=== PATIENT | female | born 1995 | race Caucasian/White ===

== ENCOUNTER 2017-09-04 19:05 | Inpatient (IN) | payer BC, SELFPAY ==
[2017-09-04 19:26] VITALS: BMI 43.7
[2017-09-04] MEDS: Lactated Ringers 1,000 ML 50 ML IV (20:00)
[2017-09-04] MEDS: 0.9% Normal Saline 100 ML IV.SOLN. INTRA-UTER (20:15)
[2017-09-04 20:19] LABS: Hematocrit 35.1 % (37-47); Hemoglobin 11.9 g/dl (12.0-15.0); Mean Corp Hgb Conc 33.9 g/gl (32-36); Mean Corpuscular Volume 91.4 fL (81-99); Mean Platelet Vol. 10.5 fl (6.2-12.0); Platelet Count 261 K/mm3 (150-450); RBC Distribution Width CV 13.4 % (11.6-14.6); RBC Distribution Width SD 43.9 fl (35.1-43.9); Red Blood Count 3.84 M/mm3 (4.2-5.4); White Blood Count 11.6 K/mm3 (4.4-11.0)
--- NOTE | 2017-09-04 20:30 | PCM.HP.OB ---
History Date of Admission: 09/04/17 Final SHARIF: 09/25/17 Gestational age: 37 Weeks and 0 Days History of this : 22yo @ 37 wks with PRE E. pt reports headache noted only today- otherwise asymptomatic. pt reports no CP, Abdominal pain. pt reports that she has not had any LOF, VB. pt reports good FM. Pt had elevated urine protein level but otherwise normal PRE E labs previously- new labs sent on admission today. pt reports ? H/o HTN but was never truly diagnosed prior to . has been on BABY ASA. Allergies No Known Allergies Allergy (Verified 09/04/17 20:14) Current Medications Acetaminophen (Tylenol) 325 - 650 mg PO Q4H PRN PRN PRN Reason: PAIN OR FEVER >100.4F Al Hydroxide/Mg Hydroxide (Mylanta Ii) 15 - 30 ml PO Q4H PRN PRN PRN Reason: INDIGESTION Citric Acid/Sodium Citrate (Bicitra) 30 ml PO UD PRN Lactated Ringer's () 1,000 mls @ 50 mls/hr IV .Q20H CASANDRA Oxytocin/Sodium Chloride () 30 units in 500 mls @ 1 mls/hr IV .Q500H CASANDRA Nalbuphine HCl (Nubain) 5 - 10 mg IV Q3H PRN PRN PRN Reason: PAIN (4-10/10) Ondansetron HCl (Zofran) 4 mg IV Q8H PRN PRN PRN Reason: NAUSEA Promethazine HCl (Phenergan) 6.25 - 12.5 mg IV Q4H PRN PRN; Protocol PRN Reason: IF NAUSEA PERSISTS Sodium Chloride () 5 - 15 ml IV UD [facility] Smoking Status: Never smoker Alcohol: None Number of Fetus(es): 1 Review of Systems Constitutional: Denies: Anorexia Eyes: Denies: Blurred vision HEENT: Reports: Head Aches - today only Cardiovascular: Denies: Chest Pain Gastrointestinal: Denies: Abdominal Pain Physical Exam General: Alert, Oriented x3 Abdomen: Soft, Non Tender, Gravid Estimated gestational size: Appropriate for gestational size Presentation: Cephalic Cervix Dilation (cm): 0.5 Station: -3 Effacement (%): 60 Assessment/Plan 22yo 2 37 weeks with PRE eclampsia here for IOL 1) admit to L&D 2) monitor FHR/TOCo 3) PRADO AND PIT FOR IOL 4) Epidural if requested for pain 5) GBS negative
[2017-09-04 20:33] LABS: Scan Indicated on CBC? Y/N NO
--- NOTE | 2017-09-04 20:33 | PCM.PN.BLA ---
Progress Note I placed transcervical lake catheter without complication- after placement the catheter was stuck on guidewire- was able to gentle slide it off after placement of 30cc NS but it was sticking to wire. I was then called back to room- Moderate amount of Bloody fluid noted to be coming from Lake catheter- Likely incidental AROM when placement of lake was being performed- will monitor the fluid.
--- NOTE | 2017-09-04 20:36 | PN_ITS ---
Progress Note I placed transcervical lake catheter without complication- after placement the catheter was stuck on guidewire- was able to gentle slide it off after placement of 30cc NS but it was sticking to wire. I was then called back to room - Moderate amount of Bloody fluid noted to be coming from Lake catheter- Likely incidental AROM when placement of lake was being performed- will monitor the fluid.
[2017-09-04] MEDS: Oxytocin 30 units/NS 500 ml 30 UNITS/500 ML IV.SOLN IV (21:05)
[2017-09-04 21:08] LABS: AST(SGOT) 14 U/L (15-37); Alanine Aminotransfer ALT/SGPT 16 U/L (13-56); Creatinine, Serum 0.43 mg/dL (0.55-1.02); EST Glomerular Filtration Rate 190 mL/min (>60); Est Glom Filt Rate - Afr Amer 230 mL/min (>60); Estimated Creatinine Clearance 190.48 ml/min; Uric Acid 4.3 mg/dL (2.6-6.0)
[2017-09-04 21:39] LABS: Prothrombin Time (Protime)PT. 13.2 SECONDS (11.7-14.9)
[2017-09-05] VITALS (10 sets, daily range): BP systolic 120–147; BP diastolic 63–87; PULSE 96–126; RESP 15–20; TEMP 36.6–37.3; O2SAT 91–98
--- NOTE | 2017-09-05 08:36 | PCM.PN.BLA ---
Progress Note S: Patient is painful with ctxs O: /-2 fhts 135 with mod variability, accels tocos Q2 min A&P: continue pitocin induction preE - monitor BP closely
[2017-09-05] MEDS: fentaNYL-bupivacaine (epidural) 100 ML BAG EPIDURAL (08:58)
[2017-09-05] MEDS: Lactated Ringers 1,000 ML 50 ML IV ×2 (13:00→18:30)
--- NOTE | 2017-09-05 19:37 | OP.PCM_ITS ---
Delivery Classification: EZEKIEL Final SHARIF: 09/25/17 Gestational age: 37 Weeks and 1 Days Indications: Patient had prolonged decelerations wish pushing so pitocin was stopped. Fht's improved & were reassuring so patient continued pushing. tachycardia developed but fht's were overall reassuring with mod variability & accels. After 3 hours of pushing patient was still 0 station with increasing caput. Patient also very painful & anesthesia unable to redose or replace epidural. Will proceed with primary for failure to descend. Patient with temp of 100.6 just prior to so patient with suspected chorioamnionitis. Indications for : Failure of Descent, Suspected chorioamniotis, - - Preeclampsia Description of Procedure: Patient taken to OR where she was prepped and draped in normal sterile fashion in a dorsal lithotomy position with a leftward tilt. Once GETA was established & confirmed, a Pfannensteil skin incision was made and carried through to the underlying fascia with a scalpel. The fascia was incised in the midline and carried laterally with the Pascal scissors. The superior fascia was grasped with debbie clamps & underlying rectus muscle was dissected off. This was repeated inferiorly. The rectus muscles were in the midline and the peritoneum was entered bluntly. The bladder flap was dissected down carefully with the Metzenbaum scissors and blunt dissection. The uterus was incised in a transverse fashion and then incision extended with cephalocaudad traction. The fetus was vertex and the head was brought to the incision in the flexed position. RN gave a vaginal hand to help elevated the head from the vagina. With good fundal pressure the head easily delivered. The shoulders and body easily followed. The 3VC cord was clamped and cut and the handed off to the waiting RN. The placenta was delivered with gentle traction and fundal massage. The uterus was exteriorized and cleared of all clots and debris. The uterine incision was closed with 1 vicryl suture in a running locked fashion. The bovie was used to further obtain further hemostasis of the uterine incision. A second imbricating layer of monocryl was placed. 1 additional vicryl suture was placed on the right side of the incision to obtain hemostasis. The uterus was returned to the peritoneal cavity. The pelvis was irrigated & then cleared of all clots and debris. The uterine incision was reexamined and found to be hemostatic. Some treasure was placed over the uterine incision & bladder flap due to the denuded areas. The parietal peritoneum was reapproximated with running 3 vicryl suture. The fascia was closed with looped PDS suture in a running standard fashion. The subcutaneous tissue was examined & any bleeding bovie cauterized. The subcutaneous tissue was reapproximated with plain gut suture. The skin was closed in a subcuticular fashion by the SUSTAINABILITY CONSULTANT with me present in the labor and delivery suite. I performed the remainder of the procedure with assistance. Amniotic Membrane Rupture Type: Artificial Amniotic Fluid Description: Clear Placenta Disposition: [facility] Drain: Calderon to straight drain Cord Entanglement: None Cord Vessel Description: 3 Vessels Esitmated Blood Loss (ml): 700ml Infant Gender: Male (1 minute): 1 - 8 at 10 minutes (5 minute): 5 Pre-op Antibiotic Given: - - Ancef 3g & azithromycin 500mg
[2017-09-05] MEDS: Sodium Citrate/Citric Acid 30 ML UDC PO (19:46)
[2017-09-05] MEDS: Oxytocin 30 units/NS 500 ml 30 UNITS/500 ML IV.SOLN 167 UNITS IV (20:17)
[2017-09-05] MEDS: Ketorolac 30 MG/ML Syringe IV (20:20)
[2017-09-05] MEDS: Lactated Ringers 1,000 ML 100 ML IV (20:30)
[2017-09-06] VITALS (9 sets, daily range): BP systolic 114–132; BP diastolic 56–86; PULSE 104–113; RESP 16–18; TEMP 36.4–37.4; O2SAT 16–100
[2017-09-06] MEDS: Ketorolac 30 MG/ML Syringe IV ×4 (01:53→20:45)
[2017-09-06] MEDS: Lactated Ringers 1,000 ML 100 ML IV (05:01)
[2017-09-06 06:01] LABS: Hematocrit 28.5 % (37-47); Hemoglobin 9.5 g/dl (12.0-15.0); Mean Corp Hgb Conc 33.3 g/gl (32-36); Mean Corpuscular Hgb 31.1 pg (27.0-32.0); Mean Corpuscular Volume 93.4 fL (81-99); Mean Platelet Vol. 10.7 fl (6.2-12.0); Platelet Count 223 K/mm3 (150-450); RBC Distribution Width CV 13.9 % (11.6-14.6); RBC Distribution Width SD 45.3 fl (35.1-43.9); Red Blood Count 3.05 M/mm3 (4.2-5.4); White Blood Count 24.6 K/mm3 (4.4-11.0)
[2017-09-06 06:10] LABS: Scan Indicated on CBC? Y/N NO
[2017-09-06] MEDS: HYDROmorphone 1 MG/ML Syringe IV (06:41)
[2017-09-06] MEDS: 0.9% Saline Lock 10 ML Syringe IV ×3 (06:46→20:46)
--- NOTE | 2017-09-06 08:18 | PN.OBGYN_ITS ---
Subjective: Patient sitting up in bed at this time resting. Patient reports that in the nursery being monitored for low blood sugars. [place] is receiving IV dextrose to help control blood sugars. Patient reports pain is well-controlled. Has not gotten out of bed yet to ambulate. Urine catheter still in place at this time. Objective: Nipples without cracks or blisters - pumping encouraged to help encourage colostrum production and so that milk will come in Abdomen NT x 4 quadrants, dressing dry and intact SCDs in place, negative calf pain/tenderness to palpation +2/4 reflexes in LE, trace non-pitting pedal edema Scant rubra lochia noted - Physical Exam General: Alert, Oriented x3, Cooperative HEENT: Atraumatic, Normocephalic Lungs: Clear to auscultation, Normal air movement Cardiovascular: Regular rate, Regular Rhythm, No murmurs Abdomen: Soft, Non Tender, Non-Distended, No Hepato-splenomegaly, Passing Flatus Extremities: No edema, Capillary Refill Less than 3 Seconds, No Calf Tenderness , Peripheral Pulses Normal Skin: No rashes, No breakdown Musculoskeletal: No Tenderness to Palpation of Joints or Extremities Neurological: Cranial nerves II-XII grossly intact, Deep Tendon Reflexes 2+/4 and Symmetrical Psych/Mental Status: Normal Affect, Appropriate, Alert and oriented to time, place, person, mood and affect Vital Signs Temp Pulse Resp BP Pulse Ox 98.6 F 104 H 16 123/86 H 16 09/06/17 07:29 09/06/17 07:29 09/06/17 07:29 09/06/17 07:29 09/06/17 07:29 Oxygen Flow Rate (L/min) 1 Oxygen Delivery Method Room Air Weight: 270 lb 11.642 oz Body Mass Index (BMI) 43.7 Intake and Output for Last 24 Hours 09/04/17 09/05/17 09/06/17 23:59 23:59 23:59 Intake Total 5964.6 / 5964.6 Output Total 1275 / 1275 Balance 4689.6 / 4689.6 Laboratory Tests Past 24 Hrs 09/06/17 05:50 WBC 24.6 H RBC 3.05 L Hgb 9.5 L Hct 28.5 L MCV 93.4 MCH 31.1 MCHC 33.3 RDW 13.9 RDW Differential 45.3 H Plt Count 223 MPV 10.7 Medical Necessity - Tobacco Use Smoking Status: Never smoker Assessment/Plan 22 y/o G1 now P1 s/p LTCS for failure to descend, POD #1 P: 1) Continue PP orders as listed 2) consultation today re: use of breast pump while in nursery Radha MARTINEZ
[2017-09-06] MEDS: oxyCODONE 5 MG Tablet PO ×2 (12:09→17:05)
--- NOTE | 2017-09-06 19:18 | NURSING ---
epidural catheter removed, blue tip noted at end, pt tolerated well.
[2017-09-07 02:35] VITALS: BP 123/65; PULSE 113; RESP 18; TEMP 37.3; O2SAT 97
[2017-09-07] MEDS: 0.9% Saline Lock 10 ML Syringe IV ×3 (02:35→13:46)
[2017-09-07] MEDS: Ketorolac 30 MG/ML Syringe IV ×3 (02:35→13:45)
[2017-09-07 07:43] VITALS: BP 116/72; PULSE 107; RESP 16; TEMP 36.8
[2017-09-07] MEDS: Senna/Docusate Sodium 1 Tablet PO (07:55)
[2017-09-07] MEDS: Acetaminophen 500 MG Tablet 1000 MG PO ×2 (07:55→17:41)
--- NOTE | 2017-09-07 08:03 | NURSING ---
pt c/o headache when sitting up and none when lying flat or prone
--- NOTE | 2017-09-07 08:19 | PCM.PN.OB ---
Subjective: pain well controlled, average lochia. C/o [place] when sitting or standing. Better within 2 minutes of lying. No n/V. No visual changes or epigastric pain - Physical Exam General: Alert, Cooperative, No apparent distress Abdomen: Soft, Distended - mildly, softly, Tender - appropriately Extremities: Edema - 2+, - - no clonus, 1+ DTRs Vital Signs Temp Pulse Resp BP Pulse Ox 98.2 F 107 H 16 116/72 97 09/07/17 07:43 09/07/17 07:43 09/07/17 07:43 09/07/17 07:43 09/07/17 02:35 Oxygen Flow Rate (L/min) 1 Oxygen Delivery Method Room Air Weight: 122.8 kg Body Mass Index (BMI) 43.7 Intake and Output for Last 24 Hours 09/05/17 09/06/17 09/07/17 23:59 23:59 23:59 Intake Total 5964.6 / 5964.6 Output Total 1275 / 1275 600 / 600 Balance 4689.6 / 4689.6 -600 / -600 Medical Necessity - Tobacco Use Smoking Status: Never smoker Assessment/Plan POD#2 s/p primary c/s spinal [place], will have anesthesia eval otherwise doing well routine care infant in SCN for blood sugar issues
[2017-09-07 13:43] VITALS: BP 131/89; PULSE 112; RESP 16; TEMP 36.7
[2017-09-07 20:09] VITALS: BP 124/75; PULSE 106; RESP 18; TEMP 36.7; O2SAT 98
[2017-09-08] MEDS: Ibuprofen 600 MG Tablet PO (02:07)
[2017-09-08] MEDS: oxyCODONE 5 MG Tablet PO (02:18)
[2017-09-08 02:24] VITALS: BP 131/86; PULSE 100; RESP 16; TEMP 36.5
--- NOTE | 2017-09-08 02:27 | NURSING ---
pt awoke painful, given motrin for inflamation has not had any sice toradol completed but pt states her pain is a 6-7 so oxyir also given for pain rating.
[2017-09-08 07:39] VITALS: BP 123/73; PULSE 92; RESP 16; TEMP 37.4
--- NOTE | 2017-09-08 08:50 | PN.OBGYN_ITS ---
Subjective: No complaints - Physical Exam General: Alert, Oriented x3 Abdomen: Soft, Non Tender, Non-Distended - ff mid & below umb; inc - bandage c/d /i Extremities: No Calf Tenderness Vital Signs Temp Pulse Resp BP Pulse Ox 99.3 F H 92 16 123/73 H 98 09/08/17 07:39 09/08/17 07:39 09/08/17 07:39 09/08/17 07:39 09/07/17 20:09 Oxygen Flow Rate (L/min) 1 Oxygen Delivery Method Room Air Weight: 270 lb 11.642 oz Body Mass Index (BMI) 43.7 Intake and Output for Last 24 Hours 09/06/17 09/07/17 09/08/17 23:59 23:59 23:59 Output Total 600 / 600 Balance -600 / -600 Medical Necessity - Tobacco Use Smoking Status: Never smoker Assessment/Plan POD#3 PreE - BP's normal ROutine care Plan for d/c tomorrow
[2017-09-08] MEDS: Acetaminophen 500 MG Tablet 1000 MG PO (12:24)
[2017-09-08 14:00] VITALS: BP 154/84; PULSE 108; RESP 16; TEMP 36.7; O2SAT 94
[2017-09-08 16:00] VITALS: BP 139/87; PULSE 90
[2017-09-08] MEDS: Ferrous Sulfate 325 MG Tablet PO (18:05)
[2017-09-08 20:00] VITALS: BP 138/85; PULSE 93; RESP 18; TEMP 36.6; O2SAT 100
[2017-09-09 01:19] VITALS: BP 116/77; PULSE 96; RESP 16; TEMP 37.2; O2SAT 96
[2017-09-09 08:00] VITALS: BP 145/84; PULSE 88; RESP 18; TEMP 36.1; O2SAT 96
[2017-09-09] MEDS: Ferrous Sulfate 325 MG Tablet PO (09:36)
--- NOTE | 2017-09-09 09:40 | DCINST_ITS ---
Discharge Diet: No Restrictions Discharge Activity: May not drive while taking narcotic pain medications., May Shower May resume sexual activity in: 6 weeks Weight Bearing Status: Weight bearing as tolerated Call your doctor if your incision/area has: Continuous Slow Oozing, Sudden Increased Bleeding, Increased Pain/ Swelling, Increased Redness, Foul Smelling Discharge, Swelling at the incision site Call your doctor if you observe: Fever of 101 or Higher, Coldness, Increased Pain, Numbness or Tingling, Change in Color, Inability to urinate, Inability to have a bowel movement, Using more than one pad per hour, Shortness of breath, Dizziness, Fainting spells, Swelling in the ankles, Chest pain, Prolonged hiccoughing, Increased palpitations (irregular heartbeat), Calf discomfort, Uncontrolled pain Suture Line Care: Avoid Pulling/Pushing Cleanse incision/area with: Soap & Water Additional Instructions: If you experience any of the following, contact your healthcare provider. * Bleeding that soaks a pad every hour for 2 hours * Fever 100.4 or higher * Unrelieved incision or abdominal pain * Swelling, redness, discharge or bleeding from your incision or episiotomy site * Your incision begins to separate * Problems urinating (including inability to urinate or burning while urinating) . * Visual changes * Severe headache * Flu-like symptoms * Pain or redness in one of both of your breasts * Pain, warmth, tenderness or swelling in your legs, especially the calf area * Frequent nausea and vomiting * Symptoms of depression or anxiety If you experience any of the following, call 911 or go to the nearest Emergency Room. * Chest pain * Problems breathing * Seizure activity * Partial or complete paralysis of a body part, slurred speech, weakness or drooping of the face, or a sudden inability to walk or hold your balance Allergies/Adverse Reactions: Allergies No Known Allergies Allergy (Verified 09/04/17 20:14) Medications to take at Discharge Tablet 1 tab PO PRN 09/04/17 Docusate Sodium [Colace] 100 mg PO BID PRN PRN #60 cap 09/09/17 Ferrous Sulfate 325 mg PO BIDCM #60 tab 09/09/17 Ibuprofen 600 mg PO 4X/DAY PRN #40 tab 09/09/17 Oxycodone HCl/Acetaminophen [Percocet 5/325] 1 tab PO Q6H PRN PRN 7 Days #28 tab 09/09/17 The following prescriptions were given: Oxycodone HCl/Acetaminophen [Percocet 5/325] 1 tab PO Q6H PRN PRN 7 Days #28 tab PRN Reason: Pain Docusate Sodium [Colace] 100 mg PO BID PRN PRN #60 cap PRN Reason: Pain Ferrous Sulfate 325 mg PO BIDCM #60 tab Ibuprofen 600 mg PO 4X/DAY PRN #40 tab PRN Reason: Pain Follow-Up: Call to make an appointment with your doctor for an incision check in 1-2 weeks. You will also need a 6 week post- follow up appointment. Primary Care Physician: Care Physician,No Primary [Primary Care Provider] -
--- NOTE | 2017-09-09 09:42 | PN.OBGYN_ITS ---
Subjective: Patient feels well. She has a mild headache. - Physical Exam General: Alert, Oriented x3 Abdomen: Soft, Non Tender, Non-Distended - ff mid & below umb; inc - bandage c/d /i Extremities: No Calf Tenderness, Edema - 3+ Vital Signs Temp Pulse Resp BP Pulse Ox 97.0 F L 88 18 145/84 H 96 09/09/17 08:00 09/09/17 08:00 09/09/17 08:00 09/09/17 08:00 09/09/17 08:00 Oxygen Flow Rate (L/min) 1 Oxygen Delivery Method Room Air Weight: 270 lb 11.642 oz Body Mass Index (BMI) 43.7 Medical Necessity - Tobacco Use Smoking Status: Never smoker Assessment/Plan 22yo female POD#4 PreE - BP's normal to mildly elevated. She likely has underlying chronic hypertension. Will give dose of lasix as patient with significant edema. Plan for d/c later today.
[2017-09-09] MEDS: Acetaminophen 500 MG Tablet 1000 MG PO (10:50)
[2017-09-09] MEDS: Furosemide 20 MG Tablet PO (10:51)
[2017-09-09 13:15] VITALS: BP 124/64; PULSE 97; RESP 16; TEMP 37.1; O2SAT 96
--- NOTE | 2017-09-09 15:25 | NURSING ---
Blood patch completed @ 9260.
[2017-09-09] MEDS: Lactated Ringers 1,000 ML 500 ML IV (15:30)
--- NOTE | 2017-09-09 20:34 | NURSING ---
To courtesy room status. Papers signed. Pt. also aware to call office on Monday for repeat BP check.
--- NOTE | 2017-09-09 20:49 | NURSING ---
Addendum for 09/09/17 @ [id number]: Dr. Pierce in room for blood patch. Pt. gave verbal consent after stating she understood risks of procedure. Blood patch done per Dr. Pierce under sterile procedure. IV start to left AC x1 attempt per BETY Miles. Blood drawn in 2 syringes in sterile procedure, handed to Dr. Pierce. Pt. c/o headache at beginning of procedure, and denied feeling headache after blood administered. Pt. back to bed to supine position, HOB elevated 30-40 degrees. IV running as ordered. VS as follows: 1530- 115/71, P90, Pulse Ox. 97% 1535-118/77, P 93, Pulse Ox. 98% 1540- 121/79, P 96, Pulse Ox. 98% 1545- 119/74, P 99, Pulse Ox. 99% 1550- 124/77, P 97, Pulse Ox. 98% 1555- 119/77, P 93, Pulse Ox. 98% 1600- 125/71, P 94, Pulse Ox. 98% 1605- 126/82, P 92, Pulse Ox. 98% 1610- 117/77, P 94, Pulse Ox. 99% 1615- 119/70, P 92, Pulse Ox. 97% 1620- 114/66, P 91, Pulse Ox. 98% 1625- 131/83, P 97, Pulse Ox. 100% 1630- 115/72, P 91, Pulse Ox. 97%
--- NOTE | 2017-11-02 13:20 | PCM.DC.SUM ---
Discharge Date and Diagnosis Date of Admission: 09/04/17 Date of Discharge: 09/09/17 Hospital Course and Treatment Summary of Care Provided: Patient admitted for induction for preeclampsia. She had a primary - please see operative note. Hospital course: Heme - HDS, rx iron given for PP anemia GI - tolerating regular diet at time of discharge - lake removed POD#1 & no voiding dysfunction PreE - BP's normal to mild elevation after delivery, patient with possible underlying chronic hypertension D/c to home on POD#4 Discharge Diet: No Restrictions Discharge Activity: May not drive while taking narcotic pain medications., May Shower May resume sexual activity in: 6 weeks Weight Bearing Status: Weight bearing as tolerated Call your doctor if your incision/area has: Continuous Slow Oozing, Sudden Increased Bleeding, Increased Pain/ Swelling, Increased Redness, Foul Smelling Discharge, Swelling at the incision site Call your doctor if you observe: Fever of 101 or Higher, Coldness, Increased Pain, Numbness or Tingling, Change in Color, Inability to urinate, Inability to have a bowel movement, Using more than one pad per hour, Shortness of breath, Dizziness, Fainting spells, Swelling in the ankles, Chest pain, Prolonged hiccoughing, Increased palpitations (irregular heartbeat), Calf discomfort, Uncontrolled pain Suture Line Care: Avoid Pulling/Pushing Cleanse incision/area with: Soap & Water Home Medications: Medications to take at Discharge Tablet 1 tab PO PRN 09/04/17 Docusate Sodium [Colace] 100 mg PO BID PRN PRN #60 cap 09/09/17 Ferrous Sulfate 325 mg PO BIDCM #60 tab 09/09/17 Ibuprofen 600 mg PO 4X/DAY PRN #40 tab 09/09/17 Oxycodone HCl/Acetaminophen [Percocet 5/325] 1 tab PO Q6H PRN PRN 7 Days #28 tab 09/09/17 Following Prescrptions Were Given to Patient: Oxycodone HCl/Acetaminophen [Percocet 5/325] 1 tab PO Q6H PRN PRN 7 Days #28 tab PRN Reason: Pain Docusate Sodium [Colace] 100 mg PO BID PRN PRN #60 cap PRN Reason: Pain Ferrous Sulfate 325 mg PO BIDCM #60 tab Ibuprofen 600 mg PO 4X/DAY PRN #40 tab PRN Reason: Pain Primary Care Physician: Care Physician,No Primary [Primary Care Provider] - Medical Necessity - Tobacco Use Smoking Status: Never smoker Meaningful Use Info Meaningful Use Diagnoses (Choose all that apply): None applicable
== END 2017-09-09 18:10 | disposition home or self-care (01) | DRG 765 ==
PROVIDERS: Obstetrics & Gynecology; Admitting Provider Obstetrics & Gynecology; Visit Provider Obstetrics & Gynecology
DX: O76 Abnormality in fetal heart rate and rhythm complicating labor and delivery (principal); O11.3 Pre-existing hypertension with pre-eclampsia, third trimester; O41.1230 Chorioamnionitis, third trimester, not applicable or unspecified; Z68.41 Body mass index [BMI] 40.0-44.9, adult; O10.913 Unspecified pre-existing hypertension complicating pregnancy, third trimester; D62 Acute posthemorrhagic anemia; O32.4XX0 Maternal care for high head at term, not applicable or unspecified; O99.214 Obesity complicating childbirth; E66.01 Morbid (severe) obesity due to excess calories; O90.81 Anemia of the puerperium; O12.2 Gestational edema with proteinuria; O89.4 Spinal and epidural anesthesia-induced headache during the puerperium; O99.52 Diseases of the respiratory system complicating childbirth; J45.998 Other asthma; Z79.82 Long term (current) use of aspirin; Z3A.37 37 weeks gestation of pregnancy; Z37.0 Single live birth
CPT/HCPCS: 59025; 59050; 82565; 84450; 84460; 84550; 85027; 85610; 85730; 86850; 86900; 99218; J7120; A4216; G0378; J2405